=== PATIENT | female | born 1985 | race Caucasian/White ===

== ENCOUNTER 2017-02-19 19:25 | Emergency (ER) | payer MEDICAID, OTHER ==
[~2017-02-19] VITALS: Ht 162.6 cm; Wt 63.5 kg
[2017-02-19 19:52] LABS: Urine Bacteria NONE SEEN /hpf (None Seen); Urine Blood Negative /uL (Negative); Urine Mucus FEW (None Seen); Urine Specific Gravity 1.029 (1.001-1.035); Urine WBC 1 /hpf (0 - 5)
[2017-02-19 20:02] LABS: Basophils # (auto) 0 uL; Basophils % (auto) 0.3 % (0.0-2.0); Eosinophils # (auto) 0.1 uL; Eosinophils % (auto) 0.4 % (0.0-7.0); Hematocrit 40.2 % (36.0-46.0); Hemoglobin 13.9 g/dL (12.2-16.2); Lymphocytes % (auto) 13.4 % (10.0-50.0); Mean Corpuscular Hemoglobin 33.7 pg (28.0-32.0); Mean Corpuscular Hgb Conc. 34.7 g/dL (32.0-36.0); Mean Corpuscular Volume 97.4 fL (80.0-100.0); Monocytes # (auto) 0.7 uL; Monocytes % (auto) 4.7 % (0.0-12.0); Neutrophils % (auto) 81.2 % (37.0-80.0); Platelet Count (auto) 199 10^3/uL (140-450); Red Blood Cells 4.13 10^6/uL (4.0-5.20); Red Cell Distribution Width 13.2 % (11.8-14.3); White Blood Cell 14.7 10^3/uL (4.4-10.8)
[2017-02-19 20:27] LABS: Albumin 4.1 g/dL (3.4-5.0); BUN/Creatinine Ratio 27.4; Calcium 8.8 mg/dL (8.5-10.1); Potassium 3.3 mmol/L (3.5-5.1)
[2017-02-19 20:30] LABS: Bilirubin, Total 0.4 mg/dL (0.2-1.0); Total Protein 7.9 g/dL (6.4-8.2)
[2017-02-20] MEDS ORDERED: cefTRIAXone W LIDOCAINE 1 GM IM IM ONE (01:30)
[2017-02-20] MEDS ORDERED: POTASSIUM CHL 10% (20 MEQ/15ML) 15ml ORAL SOLN PO ONE (01:30)
[2017-02-20] MEDS ORDERED: cefTRIAXone SOD 1,000 MG VL ONE (01:37)
[2017-02-20] MEDS ORDERED: cefTRIAXone 1GM/50ML D5W 50 ML IV ONE ×2 (01:39→01:45)
[2017-02-20] MEDS ORDERED: KETOROLAC TROMETH 30 MG/ML 1ML VIAL IV ONE (01:45)
[2017-02-20] MEDS ORDERED: SODIUM CHLORIDE 0.9% 1,000 ML IV ONE (02:00)
[2017-02-20 03:38] VITALS: BP 103/66
== END 2017-02-20 03:38 | disposition home or self-care (01) ==
LOC: ER 19:30
DX: N39.0 Urinary tract infection, site not specified (principal)
CPT/HCPCS: 36415; 74176; 80053; 81001; 81025; 85025; 96365; 96375; 99285; J0696; J1885; J7030